=== PATIENT | female | born 1980 | race Caucasian/White ===

== ENCOUNTER 2016-08-14 08:37 | Day surgery (SDC) | payer OTHER ==
[~2016-08-14] VITALS: Ht 157.5 cm; Wt 53.5 kg
[~2016-08-14 08:37] MED LIST: IBUPROFEN600 MG PO
[2016-08-14 08:54] LABS: BARBITURATES NEGATIVE (NEGATIVE); COCAINE NEGATIVE (NEGATIVE); METHADONE NEGATIVE (NEGATIVE); OXCYCODONE NEGATIVE (NEGATIVE); TETRAHYDROCANNABIONOL NEGATIVE (NEGATIVE); TRICYLIC ANTIDEPRESSANTS NEGATIVE (NEGATIVE)
[2016-08-14] MEDS ORDERED: LORTAB 7.5-3251 TAB PO (11:42)
[2016-08-14 12:04] VITALS: BP 101/59
== END 2016-08-14 12:55 | disposition home or self-care (01) | DRG 743 ==
LOC: ORM 08:37
PROVIDERS: ATTEND Obstetrics & Gynecology
PROC: 0UL74CZ Occlusion of Bilateral Fallopian Tubes with Extraluminal Device, Percutaneous Endoscopic Approach (ICD-10-PCS; principal; 2016-08-14)
PROC: 0U5B8ZZ Destruction of Endometrium, Via Natural or Artificial Opening Endoscopic (ICD-10-PCS; 2016-08-14)
DX: Z30.2 Encounter for sterilization (principal); F17.210 Nicotine dependence, cigarettes, uncomplicated; N92.1 Excessive and frequent menstruation with irregular cycle
CPT/HCPCS: J2710